=== PATIENT | female | born 1995 | race Two or more races ===

== ENCOUNTER 2017-11-03 19:30 | Emergency (ER) | payer OTHER ==
--- NOTE | 2017-11-03 20:08 | ED Physician Documentation ---
History of Present Illness - Stated complaint Stated Complaint: TEMP/HD PX/VOMITING/9WKS PREG - Chief complaint Chief Complaint: Fever - Additonal information Additional information: 22-year-old female presents the emergency department with one episode of fever several hours ago. The patient took of dose of Tylenol. The patient reports feeling general fatigue and nausea. The patient has a history of headaches and experienced a headache. Presently, the patient has no active symptoms. The patient is 9 weeks but is denying vaginal bleeding, vaginal discharge, lower abdominal pain or cramping or any symptoms related to her . Presently no symptoms. No other associated symptoms. Review of Systems Constitutional: reports: Fever, Chills, Myalgias, Fatigue Eyes: denies: Discharge Ears: denies: Ear pain Nose: denies: Congestion Throat: denies: Dental pain / toothache, Sore throat Cardiac: denies: Chest pain / pressure Respiratory: denies: Cough GI: reports: Nausea. 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 : None HEENT: None Psych: Depression, Anxiety Musculoskeletal: None Derm: None - Past Surgical History Past Surgical History: No - Present Medications Home Medications: Ambulatory Orders Medication Instructions Recorded Confirmed Citalopram [CeleXA] 20 mg PO DAILY 10/02/14 01/27/15 HYDROcod/ACETAM 5/325 [[place] 5/325] 1 - 2 ea PO Q6H PRN #10 tablet 11/22/15 Cephalexin [Keflex] 500 mg PO QID #24 capsule 04/04/17 Dexamethasone [Decadron] 4 mg PO DAILY #5 tablet 04/04/17 HYDROcod/ACETAM 5/325 [[place] 5/325] 1 tab PO Q6H PRN #15 tablet 04/04/17 Lorazepam [Ativan] 1 mg PO Q8H PRN #12 tablet 04/04/17 Metoclopramide [Reglan] 10 mg PO Q6H PRN #30 tablet 11/03/17 - Allergies Allergies/Adverse Reactions: Allergies Allergy/AdvReac Type Severity Reaction Status Date / Time No Known Drug Allergies Allergy Verified 11/03/17 19:33 - Social History Does the pt smoke?: Yes Smoking Status: Current some day smoker Does the pt drink ETOH?: No Does the pt have substance abuse?: No - Immunizations Immunizations are current?: Yes - POLST Patient has POLST: No PD ED PE NORMAL - General General: Alert and oriented X 3, No acute distress - HEENT HEENT: Atraumatic, PERRL, EOMI, Ears normal, Moist mucous membranes, Pharynx benign - Neck Neck: Supple, no meningeal sign - Cardiac Cardiac: RRR, Strong equal pulses - Respiratory Respiratory: No respiratory distress - Abdomen Abdomen: Soft, Non tender - Derm Derm: Normal color - Extremities Extremities: No deformity - Neuro Neuro: Alert and oriented X 3, Normal speech - Psych Psych: Normal mood Results - Vitals Vitals: Vital Signs - 24 hr 11/03/17 19:34 Temperature 36.9 C Heart Rate 84 Respiratory 18 Rate Blood Pressure 136/65 H O2 Saturation 99 Oxygen O2 Source Room air PD MEDICAL DECISION MAKING - ED course ED course: The patient is denying any active symptoms. I recommended getting a urinalysis to rule out the possibility of urinary tract infection but the patient reports just urinating and does not want to stay to provide a urine sample. The patient has no focal area of pain. Presently on examination there is no evidence of acute otitis media, pneumonia, strep pharyngitis, meningitis that would necessitate further workup in the emergency department. The patient has no symptoms related to her . Presently the patient appears appropriate for discharge and ongoing outpatient management. I discussed warning signs and recommended returning to the emergency department immediately for worsening or any concerns. - Sepsis Event Vital Signs: Vital Signs - 24 hr 11/03/17 19:34 Temperature 36.9 C Heart Rate 84 Respiratory 18 Rate Blood Pressure 136/65 H O2 Saturation 99 Oxygen O2 Source Room air Departure - Departure Disposition: 01 Home, Self Care Clinical Impression: Viral syndrome Condition: Good Instructions: ED Viral Syndrome Ch Prescriptions: Metoclopramide [Reglan] 10 mg PO Q6H PRN #30 tablet PRN Reason: Nausea / Vomiting Comments: Please follow up with your primary care and OB for recheck. Please return to the emergency department for any worsening or any concerns
[2017-11-03 20:12] VITALS: BP 131/74
[2017-11-03] MEDS ORDERED: METOCLOPRAMIDE 10 MG TABLET PO SCH (21:00)
== END 2017-11-03 20:14 | disposition home or self-care (01) ==
LOC: ED 19:30
DX: O98.511 Other viral diseases complicating pregnancy, first trimester (principal); B34.9 Viral infection, unspecified; Z3A.09 9 weeks gestation of pregnancy; F17.200 Nicotine dependence, unspecified, uncomplicated
CPT/HCPCS: 99283

== ENCOUNTER 2018-01-09 21:16 | Emergency (ER) | payer OTHER ==
[2018-01-09 21:38] VITALS: BP 137/75
== END 2018-01-09 21:38 | disposition home or self-care (01) ==
LOC: ED 21:16
DX: O42.912 Preterm premature rupture of membranes, unspecified as to length of time between rupture and onset of labor, second trimester (principal); W19.XXXA Unspecified fall, initial encounter; Z3A.18 18 weeks gestation of pregnancy; O99.212 Obesity complicating pregnancy, second trimester; E66.9 Obesity, unspecified; O99.352 Diseases of the nervous system complicating pregnancy, second trimester; G40.909 Epilepsy, unspecified, not intractable, without status epilepticus
CPT/HCPCS: 99281

== ENCOUNTER 2018-01-09 21:44 | Outpatient (CLI) | payer OTHER ==
[2018-01-09 22:08] LABS: BILIRUBIN,URINE NEGATIVE (NEGATIVE); GLUCOSE, URINE (UA) NEGATIVE (NEGATIVE); KETONES,URINE (UA) NEGATIVE (NEGATIVE); LEUKOCYTE ESTERASE, URINE NEGATIVE (NEGATIVE); NITRITE,URINE NEGATIVE (NEGATIVE); OCCULT BLOOD,URINE NEGATIVE (NEGATIVE); PROTEIN,URINE NEGATIVE (NEGATIVE); UROBILINOGEN,URINE 0.2 (NORMAL) E.U./dL (NORMAL)
[2018-01-09 22:09] LABS: CLARITY,URINE CLOUDY (CLEAR)
[2018-01-09 22:10] VITALS: BP 125/71
[2018-01-09 22:16] LABS: AMORPHOUS SEDIMENT,UR Marked /LPF; BACTERIA,URINE None Seen /HPF (None Seen); RBC,URINE None Seen /HPF (0-5); SQUAMOUS EPITHELIAL CELL,UR NONE SEEN (<= Few)
[2018-01-09 22:18] LABS: BASOPHILS % (AUTO) 0.3 %; EOSINOPHILS # (AUTO) 0.2 10^3/uL (0.0-0.7); EOSINOPHILS % (AUTO) 1.4 %; HGB - HEMOGLOBIN 10.6 g/dL (12.0-16.0); LYMPHOCYTES # (AUTO) 2.4 10^3/uL (1.5-3.5); MEAN CORPUSCULAR HEMOGLOBIN 26.4 pg (27.0-31.0); MEAN CORPUSCULAR HGB CONC 32.8 g/dL (32.0-36.0); MEAN CORPUSCULAR VOLUME 80.6 fL (81.0-99.0); MEAN PLATELET VOLUME 7.2 fL (7.9-10.8); MONOCYTES # (AUTO) 0.7 10^3/uL (0.0-1.0); MONOCYTES % (AUTO) 5.5 %; NEUTROPHILS # (AUTO) 8.6 10^3/uL (1.5-6.6); NEUTROPHILS % (AUTO) 72.8 %; PLT - PLATELET COUNT 257 10^3/uL (130-450); RED BLOOD COUNT 4.03 10^6/uL (4.20-5.40); RED CELL DISTRIBUTION WIDTH 15.4 % (12.0-15.0); WHITE BLOOD COUNT 11.8 x10^3/uL (4.8-10.8)
[2018-01-09 22:27] LABS: RUPTURE OF MEMBRANES PLUS NEGATIVE (NEGATIVE)
--- NOTE | 2018-01-09 23:57 | Ultrasound Report ---
Reason: premature rupture of membranes Procedure Date: 01/09/2018 Accession Number: [id number] / [id number] Procedure: US - OB F/U or Repeat CPT Code: FULL RESULT: EXAM: LIMITED OBSTETRICAL ULTRASOUND SECOND TRIMESTER EXAM DATE: 01/09/2018 11:37 PM. CLINICAL HISTORY: Premature rupture of membranes. COMPARISON: None. TECHNIQUE: Real-time sonographic evaluation of the fetus performed by the pediatric orthodontist. Multiple senior customer service representative static images were saved for review. DATING: EGA 18 weeks 2 days with RIVER 06/10/2018 based on the current ultrasound. GENERAL EVALUATION [place] . Cardiac activity: 142 bpm. movement: Visualized. Presentation: Cephalic. Placenta: Posterior position. No evidence for previa. Amniotic fluid: Subjectively normal. MVP 3.9 cm. MAXIMO 11.4 cm. BIOMETRY Bi-Parietal Diameter (BPD): 4.1 cm, 18 weeks 3 days Head Circumference (HC): 14.8 cm, 18 weeks 0 days Abdominal Circumference (AC): 12.7 cm, 18 weeks 2 days Femur Length (FL): 2.7 cm, 18 weeks 1 day Estimated Weight: 229 g. MATERNAL STRUCTURES Uterus: [place] contraction. Cervix: Long and closed. 3.6 cm. IMPRESSION: 1. [place] live intrauterine with gestational age 18 weeks 2 days based on current US. 2. [place] contraction noted which resolved by the end of the exam. 3. Amniotic fluid volume appears normal. 4. Cervix appears long and closed. Note: Detailed anatomic survey at 18-22 weeks is recommended. RADIA
--- NOTE | 2018-01-10 01:35 | HISTORY & PHYSICAL EXAMINATION ---
DATE OF SERVICE: 01/09/2018 Physician: Kyler Mcneal MD PATIENT IDENTIFICATION: Patient is a 22-year-old G4, P0, AB 3 female whose last menstrual period was sometime in between the and the 04 of September. She has had an early ultrasound which gives her an EDC of 11 June. This makes her 18 weeks and 2 days. CHIEF COMPLAINT: Spontaneous rupture of membranes. HISTORY OF PRESENT ILLNESS: Patient states that roughly at 5:30 this morning she fell, went to [facility] in [place], at which time they took heart tones, and checked her out and gave her medicine for nausea and was sent home. She states she started leaking at 1500, went to [facility], and was seen in the labor and delivery clinic. At that particular time, she had a speculum exam, which was negative for pooling as well as nitrazine. She was being readied to be sent home, at which time she developed some leaking of fluid from the vagina on the floor, which was nitrazine positive. At that point, she was sent home with instructions to call should she develop contractions or heavy bleeding. She was instructed to follow up back in the office in 1 week. She was requesting to be kept in the hospital, but was reassured that they may come back to the emergency room at anytime, should she have pain or cramping. Patient then called multiple hospitals: [facility], [facility], [place]. She was requesting to be seen, but she was told she was too early. She finally apparently called [facility], which patient reports that she was told that she could be seen, she should come in here. She presents this evening with the findings of a spontaneous rupture of membranes. PAST MEDICAL HISTORY: Positive for seizure disorder. Last seizure was 3-4 weeks ago[address] She does not drive. PAST SURGICAL HISTORY: Patient denies any surgery. ALLERGIES: NONE KNOWN. CURRENT MEDICATIONS 1. vitamins. 2. Vitamin D. 3. Zofran. She is currently not taking any seizure medications. HABITS: She denies the use of alcohol, tobacco, street or addictive drugs, or THC. 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 FAMILY HISTORY: Positive for leukemia, as well as congestive heart failure. She also has a family history of seizure disorder. She denies any MANUGRAPHER cancer such as breast, ovarian or cervical cancer. REVIEW OF SYSTEMS: Positive for the wearing of glasses. She is also having some difficulty with nausea and vomiting. PHYSICAL EXAMINATION GENERAL: Patient is a well-developed, well-nourished, obese female. VITAL SIGNS: Temperature is 37.1, pulse is 99, respirations 20, blood pressure is 125/71. She is saturating at 100%. HEENT: Pupils are equal and round. Extraocular muscles are intact. CARDIOVASCULAR: Regular rate and rhythm without murmurs. LUNGS: Lung andrew are clear without rales or wheezes. The lung sounds, as well as heart sounds are distant. ABDOMEN: Soft, nontender. There is no CVA tenderness noted. GYNECOLOGIC: Patient refused a speculum exam at this time. LABORATORIES: White count is 11.8, hemoglobin is 10.6, hematocrit is 32.5, and platelets are 257. Ultrasound transabdominal was performed, at which time a live active fetus was noted with cardiac activity. The composite gestational age was 18.2 weeks. Amniotic fluid index was 11.1. There was no evidence of any previa and the cervix was 3.6 cm in length. IMPRESSION 1. A 22-year-old G4, P0, AB 3 female at 18.2 weeks. 2. Spontaneous rupture of membranes with good fluid, as well as an active fetus. PLAN: In view of the fact that she does not show signs of infection, I feel that sending her home at this time with observation is the best thing to do. She was instructed to take her temperatures twice a day. She was also instructed she should keep her followup appointment with her OB doctor. Should she develop chills, fevers, temperatures she should present immediately for evaluation. I did not and the pt did not want to do any thing to terminate the . TD: 01/10/2018 00:25 CESARIO
== END 2018-01-10 00:16 | disposition home or self-care (01) ==
LOC: WFO 21:44 → FBP 21:45 → WFO 01-10 00:16
PROVIDERS: ATTEND Obstetrics & Gynecology
DX: O42.912 Preterm premature rupture of membranes, unspecified as to length of time between rupture and onset of labor, second trimester (principal); W19.XXXA Unspecified fall, initial encounter; Z3A.18 18 weeks gestation of pregnancy; O99.212 Obesity complicating pregnancy, second trimester; E66.9 Obesity, unspecified; O99.352 Diseases of the nervous system complicating pregnancy, second trimester; G40.909 Epilepsy, unspecified, not intractable, without status epilepticus
CPT/HCPCS: 76816; 81001; 84112; 85025; 99213

== ENCOUNTER 2018-02-25 19:38 | Outpatient (CLI) | payer OTHER ==
[2018-02-25 19:55] VITALS: BP 124/71
[2018-02-25 21:19] LABS: BILIRUBIN,URINE NEGATIVE (NEGATIVE); GLUCOSE, URINE (UA) NEGATIVE (NEGATIVE); KETONES,URINE (UA) NEGATIVE (NEGATIVE); LEUKOCYTE ESTERASE, URINE NEGATIVE (NEGATIVE); NITRITE,URINE NEGATIVE (NEGATIVE); OCCULT BLOOD,URINE NEGATIVE (NEGATIVE); PROTEIN,URINE NEGATIVE (NEGATIVE); UROBILINOGEN,URINE 0.2 (NORMAL) E.U./dL (NORMAL)
[2018-02-25 21:21] LABS: CLARITY,URINE CLEAR (CLEAR)
[2018-02-25 21:28] LABS: BACTERIA,URINE Few /HPF (None Seen); RBC,URINE None Seen /HPF (0-5); SQUAMOUS EPITHELIAL CELL,UR MANY Squamous (<= Few)
[2018-02-25 21:38] LABS: RUPTURE OF MEMBRANES PLUS NEGATIVE (NEGATIVE)
--- NOTE | 2018-02-25 22:27 | Ultrasound Report ---
Reason: assess for abruption Procedure Date: 02/25/2018 Accession Number: [id number] / [id number] Procedure: US - OB Limited CPT Code: FULL RESULT: EXAM: LIMITED OBSTETRICAL ULTRASOUND EXAM DATE: 02/25/2018 09:19 PM. CLINICAL HISTORY: Abdominal pain. Assess for abruption. COMPARISON: 01/09/2018. TECHNIQUE: Real-time sonographic evaluation of the fetus performed by the water plant pump operator. Multiple automobile rental representative static images were saved for review. DATING: Established EGA 25 weeks 0 days with RIVER 06/10/2018. GENERAL EVALUATION [place] . Cardiac activity: 148 bpm. movement: Visualized. Presentation: Variable, mainly transverse. Placenta: Posterior fundal position. Amniotic fluid: Normal. IMPRESSION: 1. [place] live intrauterine with gestational age 25 weeks 0 days based on prior ultrasound 01/09/2018. 2. No ultrasound abnormalities identified to explain pain. RADIA
== END 2018-02-25 22:50 | disposition home or self-care (01) ==
LOC: WFO 19:38 → FBP 19:39 → WFO 22:50
PROVIDERS: ATTEND Obstetrics & Gynecology
DX: O99.89 Other specified diseases and conditions complicating pregnancy, childbirth and the puerperium (principal); R10.9 Unspecified abdominal pain; M54.9 Dorsalgia, unspecified; Z3A.24 24 weeks gestation of pregnancy
CPT/HCPCS: 76815; 81001; 84112; 87086; 99213

== ENCOUNTER 2019-01-10 11:20 | Emergency (ER) | payer OTHER ==
[2019-01-10 12:47] LABS: BASOPHILS % (AUTO) 0.4 %; EOSINOPHILS # (AUTO) 0.2 10^3/uL (0.0-0.7); EOSINOPHILS % (AUTO) 2.6 %; HGB - HEMOGLOBIN 11.9 g/dL (12.0-16.0); LYMPHOCYTES # (AUTO) 2.4 10^3/uL (1.5-3.5); LYMPHOCYTES % (AUTO) 26.4 %; MEAN CORPUSCULAR HEMOGLOBIN 24.7 pg (27.0-31.0); MEAN CORPUSCULAR HGB CONC 31.2 g/dL (32.0-36.0); MEAN PLATELET VOLUME 9.9 fL (7.9-10.8); MONOCYTES # (AUTO) 0.6 10^3/uL (0.0-1.0); MONOCYTES % (AUTO) 6.1 %; NEUTROPHILS # (AUTO) 5.8 10^3/uL (1.5-6.6); NEUTROPHILS % (AUTO) 64.2 %; PLT - PLATELET COUNT 331 10^3/uL (130-450); RED BLOOD COUNT 4.82 10^6/uL (4.20-5.40); RED CELL DISTRIBUTION WIDTH 14.9 % (12.0-15.0)
[2019-01-10 12:51] LABS: ALBUMIN 4.2 g/dL (3.2-5.5); ALBUMIN/GLOBULIN RATIO 1.2 (1.0-2.2); BILIRUBIN,TOTAL 0.6 mg/dL (0.2-1.0); CALCIUM 9.1 mg/dL (8.5-10.3); CREATININE 0.6 mg/dL (0.4-1.0); TOTAL PROTEIN 7.6 g/dL (6.7-8.2)
--- NOTE | 2019-01-10 13:32 | ED Physician Documentation ---
PD HPI FEMALE - Stated complaint Stated Complaint: FEMALE - Chief complaint Chief Complaint: Abd Pain - History obtained from History obtained from: Patient - History of Present Illness Timing - onset: Today Timing - details: Abrupt onset Pain level max: 5 Pain level max: 3 Associated symptoms: No: Fever Contributing factors: OB-DIRECTOR OF BUSINESS APPLICATIONS History: G (6), P (1) - Additional information Additional information: 23-year-old female, 6, para 1. She states that she has taken multiple home test which have been positive. Had an ultrasound in [place] last week which showed a left ovarian cyst but no IUP. Today had increased left abdominal pain and left pelvic pain. Started heavy vaginal bleeding today as well. LMP was September. She states that she is normally very regular. Review of Systems Constitutional: denies: Fever Cardiac: denies: Chest pain / pressure Respiratory: denies: Cough GI: denies: Vomiting : denies: Dysuria, Frequency, Hesitancy Skin: denies: Rash Musculoskeletal: denies: Neck pain, Back pain Neurologic: denies: Headache PD PAST MEDICAL HISTORY - Past Medical History Cardiovascular: None Respiratory: None Endocrine/Autoimmune: None GI: None DIRECTOR OF BUSINESS APPLICATIONS: None : None HEENT: None Psych: Depression, Anxiety Musculoskeletal: None Derm: None - Past Surgical History Past Surgical History: No - Present Medications Home Medications: Ambulatory Orders Medication Instructions Recorded Confirmed No Known Home Medications 01/10/19 01/10/19 - Allergies Allergies/Adverse Reactions: Allergies Allergy/AdvReac Type Severity Reaction Status Date / Time No Known Drug Allergies Allergy Verified 01/10/19 11:59 - Social History Does the pt smoke?: Yes Smoking Status: Current every day smoker Does the pt drink ETOH?: No Does the pt have substance abuse?: No - Immunizations Immunizations are current?: Yes - POLST Patient has POLST: No PD ED PE NORMAL - Vitals Vital signs reviewed: Yes - General General: Alert and oriented X 3, No acute distress, Well developed/nourished - HEENT HEENT: PERRL, Moist mucous membranes - Neck Neck: Supple, no meningeal sign - Cardiac Cardiac: RRR - Respiratory Respiratory: No respiratory distress, Clear bilaterally - Abdomen Abdomen: Soft, Non distended, Other (Mild tenderness to palpation suprapubic and left lower quadrant. No peritoneal signs) - Female Female : Pt declined - Back Back: No CVA TTP, No spinal TTP - Derm Derm: Warm and dry - Extremities Extremities: No edema - Neuro Neuro: Alert and oriented X 3 - Psych Psych: Normal mood, Normal affect Results - Vitals Vitals: Vital Signs - 24 hr 01/10/19 01/10/19 11:55 14:46 Temperature 36.9 C 36.9 C Heart Rate 82 75 Respiratory 18 12 Rate Blood Pressure 138/74 H 135/85 H O2 Saturation 99 99 Oxygen O2 Source Room air - Labs Labs: Laboratory Tests 01/10/19 01/10/19 01/10/19 12:27 12:27 12:27 WBC 9.0 RBC 4.82 Hgb 11.9 L Hct 38.1 MCV 79.0 L MCH 24.7 L MCHC 31.2 L RDW 14.9 Plt Count 331 MPV 9.9 Neut # (Auto) 5.8 Lymph # (Auto) 2.4 [place] # (Auto) 0.6 Eos # (Auto) 0.2 Baso # (Auto) 0.0 Absolute Nucleated RBC 0.00 Nucleated RBC % 0.0 Sodium 138 Potassium 3.7 Chloride 106 Carbon Dioxide 23 Anion Gap 9.0 BUN 11 Creatinine 0.6 Estimated GFR (MDRD) 126 Glucose 100 Calcium 9.1 Total Bilirubin 0.6 AST 29 ALT 49 Alkaline Phosphatase 62 Total Protein 7.6 Albumin 4.2 Globulin 3.4 Albumin/Globulin Ratio 1.2 Lipase 33 HCG, Quant Urine Color Urine Clarity Urine pH Ur Specific Tad Urine Protein Urine Glucose (UA) Urine Ketones Urine Occult Blood Urine Nitrite Urine Bilirubin Urine Urobilinogen Ur Leukocyte Esterase Urine RBC Urine WBC Ur Squamous Epith Cells Urine Bacteria Ur Microscopic Review Urine Culture Comments Blood Type B POSITIVE 01/10/19 01/10/19 12:27 13:40 WBC RBC Hgb Hct MCV MCH MCHC RDW Plt Count MPV Neut # (Auto) Lymph # (Auto) [place] # (Auto) Eos # (Auto) Baso # (Auto) Absolute Nucleated RBC Nucleated RBC % Sodium Potassium Chloride Carbon Dioxide Anion Gap BUN Creatinine Estimated GFR (MDRD) Glucose Calcium Total Bilirubin AST ALT Alkaline Phosphatase Total Protein Albumin Globulin Albumin/Globulin Ratio Lipase HCG, Quant < 0.60 Urine Color YELLOW Urine Clarity HAZY Urine pH 5.5 Ur Specific Tad >=1.030 H Urine Protein NEGATIVE Urine Glucose (UA) NEGATIVE Urine Ketones NEGATIVE Urine Occult Blood LARGE H Urine Nitrite NEGATIVE Urine Bilirubin NEGATIVE Urine Urobilinogen 0.2 (NORMAL) Ur Leukocyte Esterase NEGATIVE Urine RBC 11-25 H Urine WBC 4-5 Ur Squamous Epith Cells MOD Squamous H Urine Bacteria Few Ur Microscopic Review INDICATED Urine Culture Comments NOT INDICATED Blood Type PD MEDICAL DECISION MAKING - ED course Complexity details: reviewed results, considered differential, d/w patient ED course: While awaiting a pelvic ultrasound, the patient stated that she had to leave the emergency department. She signed out AGAINST MEDICAL ADVICE. I recommend that she follow-up closely with her doctor and informed her that she is welcome to return at any time should she change her mind about further evaluation. She was counseled regarding potential ectopic , potential miscarriage, or other undiagnosed issue. Could also have a hemorrhagic ovarian cyst. This document was made in part using voice recognition software. While efforts are made to proofread this document, sound alike and grammatical errors may occur. Departure - Departure Disposition: 07 Against Medical Advice Clinical Impression: Vaginal bleeding, Pelvic pain Condition: Stable Instructions: ED Pelvic Pain [facility] Follow-Up: your,doctor tomorrow [Other] Comments: It is recommended that you have a pelvic ultrasound. You should have this done as soon as possible. You understand that you are leaving AGAINST MEDICAL ADVICE today. You understand that this could lead to , loss of lifestyle or loss of fertility. You are welcome to return at any time should you change your mind. Discharge Date/Time: 01/10/19 15:19
[2019-01-10 13:48] LABS: BILIRUBIN,URINE NEGATIVE (NEGATIVE); GLUCOSE, URINE (UA) NEGATIVE (NEGATIVE); KETONES,URINE (UA) NEGATIVE (NEGATIVE); LEUKOCYTE ESTERASE, URINE NEGATIVE (NEGATIVE); NITRITE,URINE NEGATIVE (NEGATIVE); OCCULT BLOOD,URINE LARGE (NEGATIVE); PH,URINE 5.5 PH (5.0-7.5); PROTEIN,URINE NEGATIVE (NEGATIVE); UROBILINOGEN,URINE 0.2 (NORMAL) E.U./dL (NORMAL)
[2019-01-10 13:49] LABS: CLARITY,URINE HAZY (CLEAR)
[2019-01-10 13:58] LABS: BACTERIA,URINE Few /HPF (None Seen); SQUAMOUS EPITHELIAL CELL,UR MOD Squamous (<= Few)
[2019-01-10 14:47] VITALS: BP 135/85
== END 2019-01-10 15:19 | disposition left against medical advice (07) ==
LOC: ED 11:20
DX: N93.9 Abnormal uterine and vaginal bleeding, unspecified (principal); R10.2 Pelvic and perineal pain; F17.200 Nicotine dependence, unspecified, uncomplicated; Z53.20 Procedure and treatment not carried out because of patient's decision for unspecified reasons
CPT/HCPCS: 36415; 80053; 81001; 81003; 83690; 84702; 85025; 86900; 86901; 87086; 99284